=== PATIENT | female | born 1995 | race African-American/Black ===

== ENCOUNTER 2017-05-17 17:45 | Emergency (ER) | END 2017-05-17 19:45 | disposition home or self-care (01) ==

== ENCOUNTER 2018-06-18 08:23 | Emergency (ER) | payer OTHER ==
[~2018-06-18] VITALS: Wt 81.0 kg
[~2018-06-18 08:23] MED LIST: AZIT250T PO; FLUT9.9S NASAL
[2018-06-18 08:27] VITALS: BP 170/102; PULSE 78; RESP 18
[2018-06-18] MEDS ORDERED: TRAM50TA2 PO (08:52)
--- NOTE | 2018-06-18 08:56 | ERD ---
ER Documentation Chief Complaint Chief Complaint DENTAL PAIN WITH HEADACHE X 1 WEEK HPI 22-year-old female presents the emergency department complaining of a left-sided toothache. Patient was in her usual state of health undergoing multiple dental procedures. After dental procedure yesterday that she required "multiple shots" for numbing. She is now complaining of pain on the left side of her face radiating from the tooth that they were working on. She reports no headache focal weakness or numbness other than the dental pain. She reports no fevers, chills. ROS All systems reviewed and are negative except as per history of present illness. Medications Home Meds Active Scripts Tramadol HCl (Tramadol HCl) 50 Mg Tablet, 50 MG PO Q6, #20 TAB Prov:SAVANNAH LOWRY 06/18/18 Fluticasone Propionate (Flonase Allergy Relief) 9.9 Ml [place].susp, 1 SPRAY NASAL BID, #1 BOTTLE TO EACH NOSTRIL Prov:KEVIN ARELLANO MD 05/17/17 Azithromycin* (Zithromax*) 250 Mg Tablet, 250 MG PO .ZPACK DIRECTED, #6 TAB TAKE 500 MG (2 TABS) THE FIRST DAY THEN 250 MG (1 TAB) DAYS 2-5 Prov:KEVIN ARELLANO MD 05/17/17 Allergies Allergies: Coded Allergies: No Known Allergy (Unverified , 05/17/17) PMhx/Soc History of Surgery: No Anesthesia Reaction: No Hx Neurological Disorder: No Hx Respiratory Disorders: Yes (asthma) Hx Cardiac Disorders: No Hx Psychiatric Problems: No Physical Exam Vitals Vital Signs Date Temp Pulse Resp B/P (MAP) Pulse Ox O2 O2 Flow FiO2 Time Delivery Rate 06/18/18 98.9 78 18 170/102 99 08:27 (124) Physical Exam General: well developed, well nourished, in no distress. Neuro: Normal speech, gait, balance HEENT: Patient has dentition that is post procedure. There is no obvious abscess or infection. No facial abscess or infection. Procedures/MDM Patient was taken to a room, seen and examined Medical decision makin-year-old female presents the emergency department with a dental pain post procedure. At this time, she has no evidence of active infection, is neurologically normal. She seems appropriate for outpatient supportive care and is referred back to her primary dentist with supportive measures and pain control. Departure Diagnosis: Primary Impression: Tooth disease Condition: Stable Patient Instructions: Dental Pain Additional Instructions: Please follow-up with your dentist as soon as possible. SAVANNAH LOWRY Jun 18, 2018 08:56
== END 2018-06-18 09:17 | disposition home or self-care (01) ==
LOC: FTE 08:23
DX: K08.9 Disorder of teeth and supporting structures, unspecified (principal); J45.909 Unspecified asthma, uncomplicated
CPT/HCPCS: 99283